=== PATIENT | female | born 1990 | race Caucasian/White ===

== ENCOUNTER 2017-03-28 20:16 | Emergency (ER) | payer OTHER ==
[2017-03-28 20:20] VITALS: BP 108/71; PULSE 88; TEMP 99; BMI 25.2
[2017-03-28] MEDS ORDERED: SODIUM CHLORIDE 1,000 ML IV STA (20:45)
[2017-03-28] MEDS ORDERED: ONDANSETRON 4 MG/2 ML VIAL IVPUSH ONE (20:45)
[2017-03-28] MEDS ORDERED: ONDANSETRON 4 MG/2 ML VIAL ONE (20:52)
--- NOTE | 2017-03-28 20:57 | PDOC ---
History of Present Illness - General Chief Complaint: Pain Stated Complaint: ABDOMINAL PAIN Time Seen by Provider: 03/28/17 20:31 - History of Present Illness Initial Comments: 03/28/17 20:52 Patient is a 27 year old female with no significant PMH who presents with abdominal pain. She reports eating a salad that had been sitting in a car yesterday evening and experienced sharp epigastric abdominal pain 30 minutes after. She reports two episodes of non-bilious, non-bloody vomiting earlier this morning and continued abdominal pain prompting her visit to the ED today. She states that she ate some chicken for dinner today and experienced worsening abdominal pain and nausea. She states that she is sexually active with her LMP 1 month ago. She denies any fevers, chills, dysuria, or burning on urination. Past History - Past Medical History Allergies/Adverse Reactions: Allergies Allergy/AdvReac Type Severity Reaction Status Date / Time No Known Allergies Allergy Verified 03/28/17 20:20 Suicide Attempt (Hx): No Other medical history: denies - Immunization History Immunization Up to Date: Yes - Psycho/Social/Smoking Cessation Hx Anxiety: Yes Suicidal Ideation: No Smoking History: Never smoked Have you smoked in the past 12 months: No Hx Alcohol Use: No Substance Use Type: None Review of Systems - Review of Systems Constitutional: No: Chills, Fever Respiratory: No: Cough, Shortness of Breath Cardiac (ROS): No: Chest Pain, Palpitations ABD/GI: Yes: Diarrhea, Nausea, Vomiting. No: Constipated : No: Burning, Dysuria Integumentary: No: Rash Neurological: No: Headache, Weakness, Dizziness *Physical Exam - Vital Signs Last Vital Signs Temp Pulse Resp BP Pulse Ox 99.0 F 88 18 108/71 99 03/28/17 20:18 03/28/17 20:18 03/28/17 20:18 03/28/17 20:18 03/28/17 20:18 - Physical Exam Comments: 03/28/17 22:00 General Appearance: Nourished. No Apparent Distress HEENT: No Pharyngeal Erythema, Tonsillar Exudate, Tonsillar Erythema Respiratory/Chest: Lungs Clear, Normal Breath Sounds. No Crackles, Rales, Rhonchi, Wheezing Cardiovascular: Regular Rhythm, Regular Rate. No Murmur, Gallop/S3, Gallop/S4 Gastrointestinal/Abdominal: Normal Bowel Sounds, Flat, Soft, Tenderness to palpation in the epigastric region and around the umbilicus. No Guarding, Rebound Extremity: Normal Capillary Refill. No Coldness, Cyanosis Integumentary: Normal Color, Dry, Warm Neurologic: Fully Oriented, Alert, Normal Mood/Affect, Normal Response ED Treatment Course - LABORATORY CBC & Chemistry Diagram: 03/28/17 21:09 03/28/17 21:09 Medical Decision Making - Medical Decision Making 03/28/17 21:04 Patient is a 27 year old female who presents with vomiting, diarrhea, and abdominal pain. Given her history and physical exam, it is likely that her symptoms are due to a gastroenteritis. We will obtain a cbc, lipase, cmp to evaluate for pancreatitis, infectious etiology, and liver function tests as sources of her symptoms. We will also get a serum to rule out any etiologies related to a . 03/28/17 21:54 Lab results are negative. It is likely that her symptoms are due to a gastroenteritis. We discussed the results with the patient and will discharge home. Her symptoms are improved after zofran and a liter of normal saline. She is agreeable to the plan. *DC/Admit/Observation/Transfer Diagnosis at time of Disposition: Gastroenteritis - Discharge Dispostion Disposition: HOME Condition at time of disposition: Improved - Patient Instructions Printed Discharge Instructions: DI for Viral Gastroenteritis -- Adult Additional Instructions: Please return to the ER if you experience worsening symptoms including increased vomiting, blood in vomit, blood in stools, fevers, or chills. Please follow up with your primary care provider to discuss your ER visit. - Attestations Physician Attestion: 03/28/17 21:58 I, Dr. Kal George, attest that this document has been prepared under my direction and personally reviewed by me in its entirety. I further attest, that it accurately reflects all work, treatment, procedures and medical decision -making performed by me.
[2017-03-28 21:23] LABS: BASOPHIL 0.2 % (0-2.0); EOSINOPHIL 0.7 % (0-4.5); MCH 26.9 pg (25.7-33.7); MCHC 32.7 g/dl (32.0-36.0); MEAN CELL VOLUME 82.3 fl (80-96); MEAN PLT VOLUME 8.6 fl (7.5-11.1); NEUTROPHILS 68.8 % (42.8-82.8); PLATELET COUNT 201 K/MM3 (134-434); WHITE BLOOD COUNT 5.7 K/mm3 (4.0-10.0)
[2017-03-28 21:44] LABS: ANION GAP 7 (8-16); BILIRUBIN,TOTAL 0.5 mg/dL (0.2-1.0); CALCIUM 8.5 mg/dL (8.5-10.1); CO2 26 mmol/L (21-32); CREATININE 0.7 mg/dL (0.55-1.02); GLUCOSE,RANDOM 90 mg/dL (74-106); SGOT/AST 12 U/L (15-37); SGPT/ALT 15 U/L (12-78); TOT PROT 7.6 g/dl (6.4-8.2)
[2017-03-28 21:45] LABS: ALK PHOS 73 U/L (45-117)
--- NOTE | 2017-03-28 22:08 | PDOC ---
Attending Attestation - Resident Resident Name: Kal George - HPI HPI: 03/28/17 22:07 27 yo female has had nausea,vomiting and diarrhea today - Physicial Exam PE: 03/28/17 22:08 wnwd 27 yo female heent wnl lungs cta b/l abd no rebound,no guarding,no RLQ tenderness neuro axox3, ambulatory,no focal neuro deficits - Medical Decision Making 03/28/17 22:09 27 yo female, not with benign abd exam, all labs unremarkable- received IVF and zofran Symptoms resolved IMP gastroenteritis
== END 2017-03-28 22:05 | disposition home or self-care (01) ==
LOC: JER 20:16
PROC: 3E033GC Introduction of Other Therapeutic Substance into Peripheral Vein, Percutaneous Approach (ICD-10-PCS; principal; 2017-03-28)
DX: K52.9 Noninfective gastroenteritis and colitis, unspecified (principal)
CPT/HCPCS: 36415; 80053; 83690; 84703; 85025; 96374; 99282-25

== ENCOUNTER 2017-09-20 16:05 | Emergency (ER) | payer OTHER ==
--- NOTE | 2017-09-20 17:07 | PDOC ---
Rapid Medical Evaluation Time Seen by Provider: 09/20/17 16:52 Medical Evaluation: Allergies Allergy/AdvReac Type Severity Reaction Status Date / Time No Known Allergies Allergy Verified 03/28/17 20:20 09/20/17 17:05 I have performed a brief in-person evaluation of this patient. The patient presents with a chief complaint of: Lower abd pain today w/ ? dysuria and fever of 101 yesterday Pertinent physical exam findings: Febrile to 101 w/ sig tenderness to mid lower abd, NT over mcburneys, no CVAT I have ordered the following:cmc/chem/ua/preg The patient will proceed to the ED for further evaluation.
[2017-09-20 17:09] VITALS: BP 126/66; PULSE 98; TEMP 100.1; BMI 23.8
[2017-09-20 17:37] LABS: BASO % 0.6 % (0-2.0); EOS % 0.5 % (0-4.5); HEMATOCRIT 39.4 % (32.4-45.2); HEMOGLOBIN 12.9 GM/dL (10.7-15.3); LYMPH % 15.1 % (8-40); MCH 27.2 pg (25.7-33.7); MCHC 32.6 g/dl (32.0-36.0); MEAN CELL VOLUME 83.2 fl (80-96); MEAN PLT VOLUME 8.4 fl (7.5-11.1); MONO % 12.7 % (3.8-10.2); NEUT % 71.1 % (42.8-82.8); PLATELET COUNT 190 K/MM3 (134-434); RBC 4.74 M/mm3 (3.60-5.2); RDW 13.3 % (11.6-15.6); WHITE BLOOD COUNT 6.1 K/mm3 (4.0-10.0)
[2017-09-20 17:39] LABS: URINE APPEARANCE CLEAR; URINE BILIRUBIN NEGATIVE (NEGATIVE); URINE BLOOD 2+ (NEGATIVE); URINE COLOR YELLOW; URINE GLUCOSE (UA) NEGATIVE (NEGATIVE); URINE KETONE NEGATIVE (NEGATIVE); URINE LEUK ESTERASE NEGATIVE (NEGATIVE); URINE NITRITE NEGATIVE (NEGATIVE); URINE PROTEIN NEGATIVE (NEGATIVE); URINE UROBILINOGEN NEGATIVE mg/dL (0.2-1.0)
[2017-09-20 17:57] LABS: ALBUMIN 4.2 g/dl (3.4-5.0); ALK PHOS 77 U/L (45-117); ANION GAP 6 (8-16); BILIRUBIN,TOTAL 0.2 mg/dL (0.2-1.0); BLOOD UREA NITROGEN 10 mg/dL (7-18); CALCIUM 8.5 mg/dL (8.5-10.1); CHLORIDE 105 mmol/L (98-107); CO2 27 mmol/L (21-32); CREATININE 0.8 mg/dL (0.55-1.02); GLUCOSE,RANDOM 94 mg/dL (74-106); POTASSIUM 3.7 mmol/L (3.5-5.1); SGOT/AST 8 U/L (15-37); SGPT/ALT 16 U/L (12-78); SODIUM 138 mmol/L (136-145)
[2017-09-20 18:07] LABS: EPI CELLS RARE /HPF (FEW); URINE BACTERIA RARE /hpf (NONE SEEN); URINE MUCUS RARE
--- NOTE | 2017-09-20 19:00 | PDOC ---
History of Present Illness <Pearl Kulkarni - Last Filed: 09/20/17 19:00> - General History Source: Patient Exam Limitations: No Limitations - History of Present Illness Initial Comments: 09/20/17 19:03 The patient is a 27 year old female with no significant pat medical history who complains of mild suprapubic pain that began this afternoon. She states she has been sick with nonproductive cough, nasal congestion, and low grade fever (Tmax 101) for approximately 3 days. This afternoon she developed suprapubic discomfort, "gassy" and pressure like in nature, with questionable associated dysuria. She became concerned for a UTI and came to the ED for evaluation. Her suprapubic pain improved upon arrival. No nausea, vomiting, or diarrhea. No hematuria or flank pain. <Rosa Moon - Last Filed: 09/20/17 19:27> - General Chief Complaint: Pain Stated Complaint: STOMACH PAIN Time Seen by Provider: 09/20/17 16:52 Past History - Past Medical History COPD: No - Reproductive History Is Patient Now?: No - Immunization History Immunization Up to Date: Yes - Suicide/Smoking/Psychosocial Hx Smoking History: Never smoked Have you smoked in the past 12 months: No Information on smoking cessation initiated: No Hx Alcohol Use: No Drug/Substance Use Hx: No Substance Use Type: None <Pearl Kulkarni - Last Filed: 09/20/17 19:00> <Rosa Moon - Last Filed: 09/20/17 19:27> - Past Medical History Allergies/Adverse Reactions: Allergies Allergy/AdvReac Type Severity Reaction Status Date / Time No Known Allergies Allergy Verified 03/28/17 20:20 Home Medications: Ambulatory Orders NK [No Known Home Medication] 09/20/17 Review of Systems - Review of Systems Able to Perform ROS?: Yes Comments:: 09/20/17 19:13 CONSTITUTIONAL: Present: fever tmax 101 (resolved) Absent: diaphoresis, generalized weakness, malaise, loss of appetite HEENT: Present: nasal congestion, Absent: rhinorrhea, throat pain, throat swelling, difficulty swallowing, mouth swelling, ear pain, eye pain, visual Changes CARDIOVASCULAR: Absent: chest pain, syncope, palpitations, irregular heart rate, lightheadedness , peripheral edema RESPIRATORY: Present: cough Absent: shortness of breath, dyspnea with exertion, orthopnea, wheezing, stridor , hemoptysis GASTROINTESTINAL: Absent: abdominal pain, abdominal distension, nausea, vomiting, diarrhea, constipation, melena, hematochezia GENITOURINARY: Present: suprapubic pain (resolved), ?dysuria (resolved) Absent: frequency, urgency, hesitancy, hematuria, flank pain, genital pain MUSCULOSKELETAL: Absent: myalgia, arthralgia, joint swelling SKIN: Absent: rash, itching, pallor HEMATOLOGIC/IMMUNOLOGIC: Absent: easy bleeding, easy bruising, lymphadenopathy, frequent infections ENDOCRINE: Absent: unexplained weight gain, unexplained weight loss, heat intolerance, cold intolerance NEUROLOGIC: Absent: headache, focal weakness or paresthesias, dizziness, unsteady gait, seizure, mental status changes, bladder or bowel incontinence PSYCHIATRIC: Absent: anxiety, depression, suicidal or homicidal ideation, hallucinations. <Rosa Moon - Last Filed: 09/20/17 19:27> *Physical Exam - Vital Signs Last Vital Signs Temp Pulse Resp BP Pulse Ox 100.1 F H 98 H 20 126/66 99 09/20/17 17:05 09/20/17 17:05 09/20/17 17:05 09/20/17 17:05 09/20/17 17:05 <Pearl Kulkarni - Last Filed: 09/20/17 19:00> - Vital Signs Last Vital Signs Temp Pulse Resp BP Pulse Ox 100.1 F H 98 H 20 126/66 99 09/20/17 17:05 09/20/17 17:05 09/20/17 17:05 09/20/17 17:05 09/20/17 17:05 - Physical Exam Comments: 09/20/17 19:17 GENERAL: Well developed, well nourished. Awake and alert. No acute distress. HEENT: Normocephalic, atraumatic. PERRLA, EOMI. No conjunctival pallor. Sclera are non- icteric. Moist mucous membranes. Oropharynx is clear. NECK: Supple. Full ROM. No JVD. Carotid pulses 2+ and symmetric, without bruits. No thyromegaly. No lymphadenopathy. CARDIOVASCULAR: Regular rate and rhythm. No murmurs, rubs, or gallops. Distal pulses are 2+ and symmetric. PULMONARY: No evidence of respiratory distress. Lungs clear to auscultation bilaterally. No wheezing, rales or rhonchi. ABDOMINAL: Soft. Non-tender. Non-distended. No rebound or guarding. No organomegaly. Normoactive bowel sounds. MUSCULOSKELETAL Normal range of motion at all joints. No bony deformities or tenderness. No CVA tenderness. EXTREMITIES: No cyanosis. No clubbing. No edema. No calf tenderness. SKIN: Warm and dry. Normal capillary refill. No rashes. No jaundice. NEUROLOGICAL: Alert, awake, appropriate. Cranial nerves 2-12 intact. No deficits to light touch and temperature in face, upper extremities and lower extremities. No motor deficits in the in face, upper extremities and lower extremities. Normoreflexic in the upper and lower extremities. Normal speech. Gait is normal without ataxia. PSYCHIATRIC: Cooperative. Good eye contact. Appropriate mood and affect. <Rosa Moon - Last Filed: 09/20/17 19:27> ED Treatment Course - LABORATORY CBC & Chemistry Diagram: 09/20/17 17:22 09/20/17 17:22 - ADDITIONAL ORDERS Additional order review: Laboratory Results 09/20/17 09/20/17 09/20/17 17:26 17:22 17:22 Sodium 138 Potassium 3.7 Chloride 105 Carbon Dioxide 27 Anion Gap 6 L BUN 10 Creatinine 0.8 Creat Clearance w eGFR > 60 Random Glucose 94 Calcium 8.5 Total Bilirubin 0.2 D AST 8 L D ALT 16 Alkaline Phosphatase 77 Total Protein 8.0 Albumin 4.2 Serum , Qual Negative Urine Color Yellow Urine Appearance Clear Urine pH 7.0 D Ur Specific [place] 1.025 Urine Protein Negative Urine Glucose (UA) Negative Urine Ketones Negative Urine Blood 2+ H Urine Nitrite Negative Urine Bilirubin Negative Urine Urobilinogen Negative Urine WBC (Auto) 1 Urine RBC (Auto) 23 Ur Epithelial Cells Rare Urine Bacteria Rare Urine Mucus Rare 09/20/17 17:22 RBC 4.74 MCV 83.2 MCHC 32.6 RDW 13.3 MPV 8.4 Neutrophils % 71.1 Lymphocytes % 15.1 D Monocytes % 12.7 H Eosinophils % 0.5 Basophils % 0.6 <Pearl Kulkarni - Last Filed: 09/20/17 19:00> - LABORATORY CBC & Chemistry Diagram: 09/20/17 17:22 09/20/17 17:22 - ADDITIONAL ORDERS Additional order review: Laboratory Results 09/20/17 09/20/17 09/20/17 17:26 17:22 17:22 Sodium 138 Potassium 3.7 Chloride 105 Carbon Dioxide 27 Anion Gap 6 L BUN 10 Creatinine 0.8 Creat Clearance w eGFR > 60 Random Glucose 94 Calcium 8.5 Total Bilirubin 0.2 D AST 8 L D ALT 16 Alkaline Phosphatase 77 Total Protein 8.0 Albumin 4.2 Serum , Qual Negative Urine Color Yellow Urine Appearance Clear Urine pH 7.0 D Ur Specific [place] 1.025 Urine Protein Negative Urine Glucose (UA) Negative Urine Ketones Negative Urine Blood 2+ H Urine Nitrite Negative Urine Bilirubin Negative Urine Urobilinogen Negative Urine WBC (Auto) 1 Urine RBC (Auto) 23 Ur Epithelial Cells Rare Urine Bacteria Rare Urine Mucus Rare 09/20/17 17:22 RBC 4.74 MCV 83.2 MCHC 32.6 RDW 13.3 MPV 8.4 Neutrophils % 71.1 Lymphocytes % 15.1 D Monocytes % 12.7 H Eosinophils % 0.5 Basophils % 0.6 <Rosa Moon - Last Filed: 09/20/17 19:27> Medical Decision Making - Medical Decision Making 09/20/17 19:27 Labs unremarkable. Pt is asymptomatic and would like to go home. Will d/c. <Rosa Moon - Last Filed: 09/20/17 19:27> *DC/Admit/Observation/Transfer <Pearl Kulkarni - Last Filed: 09/20/17 19:00> - Attestations Scribe Attestion: 09/20/17 19:20 Documentation prepared by Rosa Moon, acting as general medical practitioner for Pearl Kulkarni MD. <Rosa Moon - Last Filed: 09/20/17 19:27> Diagnosis at time of Disposition: Cough, Abdominal discomfort URI (upper respiratory infection) Qualifiers: URI type: unspecified viral URI Qualified Code(s): J06.9 - Acute upper respiratory infection, unspecified - Discharge Dispostion Disposition: HOME Condition at time of disposition: Stable - Referrals Referrals: Liz Morgan MD [Primary Care Provider] - - Patient Instructions Printed Discharge Instructions: DI for Common Cold, DI for Viral Syndrome Additional Instructions: please return for any worsening symptoms take tylenol for fever,sore throat - Post Discharge Activity
== END 2017-09-20 19:04 | disposition home or self-care (01) ==
LOC: JER 16:05
DX: J06.9 Acute upper respiratory infection, unspecified (principal); R10.30 Lower abdominal pain, unspecified
CPT/HCPCS: 36415; 80053; 81003; 81015; 84703; 85025; 87086; 99283-25

== ENCOUNTER 2018-11-26 01:50 | Emergency (ER) | payer OTHER ==
[2018-11-26 03:09] VITALS: TEMP 98.3; BMI 23.8
--- NOTE | 2018-11-26 03:32 | PDOC ---
History of Present Illness - General Chief Complaint: Urinary Problem Stated Complaint: r/o kidney stones/ Time Seen by Provider: 11/26/18 03:00 History Source: Patient Exam Limitations: No Limitations - History of Present Illness Initial Comments: 11/26/18 03:28 HISTORY OF PRESENT ILLNESS: 28-year-old woman denies medical history presents emergency department for evaluation of hematuria. Patient reports approximately 2-3 weeks ago she saw her primary doctor for evaluation of urinary tract infection. Patient was experiencing urinary frequency and urinary urgency at that time. Patient was told she had a negative test and trace blood was found in her urine is currently scheduled for a CT scan to rule out kidney stones. Patient stated her menstrual period started today but was preceded by lower back pain and a sharp pain to the lower abdomen. Pain is worse on the left than the right. Patient was concerned when she had a blood clot discharge from either the vagina or in the urine. Patient began to have hyperventilation reports having increased anxiety which caused her to seek care in the emergency department. No recent travel or sick contacts. PAST MEDICAL HISTORY: Denies past medical history SURGICAL HISTORY: Denies ALLERGIES: No known drug allergies REVIEW OF SYSTEMS General/Constitutional: Denies fever or chills. Denies weakness, weight change. HEENT: Denies change in vision. Denies ear pain or discharge. Denies sore throat. Cardiovascular: Denies chest pain or shortness of breath. Respiratory: Denies cough, wheezing, or hemoptysis. Gastrointestinal: Denies nausea, vomiting, diarrhea or constipation. Denies rectal bleeding. Genitourinary:see HPI Musculoskeletal: Denies joint or muscle swelling or pain. Denies neck or back pain. Skin and breasts: Denies rash or easy bruising. Neurologic: Denies headache, vertigo, loss of consciousness, or loss of sensation. Psychiatric: Denies depression or anxiety. Endocrine: Denies increased thirst. Denies abnormal weight change. Hematologic/Lymphatic: Denies anemia, easy bleeding, or history of blood clots. Allergic/Immunologic: Denies hives or skin allergy. Denies latex allergy. PHYSICAL EXAM General Appearance: Well-appearing, appropriately dressed. No apparent distress , no intoxication. HEENT: EOMI, PERRLA, normal ENT inspection, normal voice, TMs normal, pharynx normal. No conjunctival pallor. No photophobia, scleral icterus. Neck: Supple. Trachea midline. No tenderness, rigidity, carotid bruit, stridor , lymphadenopathy, or thyromegaly. Respiratory/Chest: Lungs CTAB. No shortness of breath, chest tenderness, respiratory distress, accessory muscle use. No crackles, rales, rhonchi, stridor , wheezing, dullness Cardiovascular: RRR. S1, S2. No JVD, murmur, bradycardia, tachycardia. Vascular Pulses: Dorsalis-Pedis (R): 2+, Dorsalis-Pedis (L): 2+ Gastrointestinal/Abdominal: Normal bowel sounds. Abdomen soft, non-distended. No tenderness or rebound tenderness. No organomegaly, pulsatile mass, guarding, hernia, hepatomegaly, splenomegaly. Lymphatic: No adenopathy, tenderness. Musculoskeletal/Extremities: Normal inspection. FROM of all extremities, normal capillary refill. Pelvis Stable. No CVA tenderness. No tenderness to extremities, pedal edema, swelling, erythema or deformity. Integumentary: Appropriate color, dry, warm. No cyanosis, erythema, jaundice or rash Neurologic: photographic aide II-XII intact. Fully oriented, alert. Appropriate mood/affect. Motor strength 5/5. No appreciable EOM palsy, facial droop or sensory deficit. Past History - Past Medical History Allergies/Adverse Reactions: Allergies Allergy/AdvReac Type Severity Reaction Status Date / Time No Known Allergies Allergy Verified 11/26/18 03:07 Home Medications: Ambulatory Orders NK [No Known Home Medication] 09/20/17 COPD: No - Reproductive History Is Patient Now?: (unknown at this time) Therapeutic (s) & number: No - Immunization History Immunization Up to Date: Yes - Suicide/Smoking/Psychosocial Hx Smoking History: Never smoked Have you smoked in the past 12 months: No Information on smoking cessation initiated: No Hx Alcohol Use: No Drug/Substance Use Hx: No Substance Use Type: None *Physical Exam - Vital Signs Last Vital Signs Temp Pulse Resp BP Pulse Ox 98.3 F 82 12 117/72 98 11/26/18 02:00 11/26/18 02:00 11/26/18 02:00 11/26/18 02:00 11/26/18 02:00 Moderate Sedation - Procedure Monitoring Vital Signs: Procedure Monitoring Vital Signs Temperature 98.3 F 11/26/18 02:00 Pulse Rate 82 11/26/18 02:00 Respiratory Rate 12 11/26/18 02:00 Blood Pressure 117/72 11/26/18 02:00 O2 Sat by Pulse Oximetry (%) 98 11/26/18 02:00 Medical Decision Making - Medical Decision Making 11/26/18 03:31 A/P: 28-year-old woman with anxiety and possible hematuria No CVA tenderness present Abdomen soft nontender nondistended. Patient likely had a panic attack combined with usual menstruation. Urinalysis, urine culture, urine testing Reassess *DC/Admit/Observation/Transfer - Referrals Referrals: Marlyn Araya MD [Primary Care Provider] - - Patient Instructions - Post Discharge Activity
[2018-11-26 05:20] LABS: URINE APPEARANCE CLEAR; URINE BILIRUBIN NEGATIVE (<2.0 mg/dL); URINE COLOR YELLOW; URINE GLUCOSE (UA) NEGATIVE (NEGATIVE); URINE KETONE 1+ (NEGATIVE); URINE LEUK ESTERASE NEGATIVE (NEGATIVE); URINE NITRITE NEGATIVE (NEGATIVE); URINE PROTEIN NEGATIVE (NEGATIVE); URINE UROBILINOGEN NEGATIVE mg/dL (0.2-1.0)
[2018-11-26 05:26] LABS: EPI CELLS RARE /HPF (FEW); URINE MUCUS MODERATE
[2018-11-26 06:13] LABS: HCG,QUALITATIVE URINE Negative
--- NOTE | 2018-11-26 08:00 | PDOC ---
*Physical Exam - Vital Signs Last Vital Signs Temp Pulse Resp BP Pulse Ox 98.3 F 82 12 117/72 98 11/26/18 02:00 11/26/18 02:00 11/26/18 02:00 11/26/18 02:00 11/26/18 02:00 - Physical Exam General Appearance: Yes: Nourished, Appropriately Dressed. No: Apparent Distress Gastrointestinal/Abdominal: positive: Normal Bowel Sounds, Flat, Soft. negative : Tender, Guarding, Rebound, Tenderness ED Treatment Course - ADDITIONAL ORDERS Additional order review: Laboratory Results 11/26/18 04:00 Urine Color Yellow Urine Appearance Clear Urine pH 5.0 D Ur Specific [place] 1.027 Urine Protein Negative Urine Glucose (UA) Negative Urine Ketones 1+ H Urine Blood 3+ H Urine Nitrite Negative Urine Bilirubin Negative Urine Urobilinogen Negative Ur Leukocyte Esterase Negative Urine WBC (Auto) 3 Urine RBC (Auto) 117 Ur Epithelial Cells Rare Urine Mucus Moderate Urine HCG, Qual Negative Medical Decision Making - Medical Decision Making 11/26/18 07:57 Sign out received from XIAO Desai at 07:[address] scan is returned. Shows mesenteric adentitis; otherwise no stones Pt to f/u with her PCP DC home *DC/Admit/Observation/Transfer Diagnosis at time of Disposition: Hematuria Qualifiers: Hematuria type: unspecified type Qualified Code(s): R31.9 - Hematuria, unspecified - Discharge Dispostion Disposition: HOME Condition at time of disposition: Stable Decision to Admit order: No - Referrals Referrals: Marlyn Araya MD [Primary Care Provider] - - Patient Instructions Printed Discharge Instructions: DI for Hematuria Additional Instructions: Your CT scan was negative for kidney stones today Please drink plenty of fluids Follow up with your primary care doctor The blood clots could be from your menstrual cycle Take the atarax as needed for anxiety Return to the ED for any new or worsening symptoms. - Post Discharge Activity Forms/Work/School Notes: Back to Work
[2018-11-26 08:09] VITALS: BP 119/73; PULSE 68
== END 2018-11-26 08:09 | disposition home or self-care (01) ==
LOC: JER 01:50
DX: R31.9 Hematuria, unspecified (principal); I88.0 Nonspecific mesenteric lymphadenitis; F41.0 Panic disorder [episodic paroxysmal anxiety]
CPT/HCPCS: 74176-TC; 81003; 81015; 84703; 87086; 99283-25